=== PATIENT | male | born 1975 | race Caucasian/White ===

== ENCOUNTER 2022-03-17 02:44 | Inpatient (IN) ==
[2022-03-17] MEDS ORDERED: SODIUM CHLORIDE 0.9% 500 ML IV STA (02:56)
[2022-03-17] MEDS ORDERED: ONDANSETRON 4 MG/2 ML VIAL IV STA (02:56)
[2022-03-17 03:10] LABS: Basophils % 0.4 % (0.0-0.8); Eosinophils # 0.3 10*3/uL (0.0-0.87); Eosinophils % 3.9 % (0.00-10.9); Hematocrit 47.4 VOL% (42.0-52.0); Hemoglobin 15.7 GM/DL (14.0-18.0); Immature Granulocytes % 1.5 %; Immature Granulocytes Absolute 0.12 #; Lymphocytes # 2.1 10*3/uL (1.4-4.0); Lymphocytes % 26.1 % (21.2-54.2); Mean Corpuscular HGB Conc 33.1 GM/DL (32-36); Mean Corpuscular Volume 90.1 FL (87-102); Mean Platelet Volume 11.5 FL (9.6-12.0); Monocytes % 12.5 % (1.7-12.7); Neutrophils % 55.6 % (38.7-73.9); Platelet Count 186 T/CUMM (130-400); Red Blood Count 5.26 MC/CUMM (3.8-5.5)
[2022-03-17 03:27] LABS: Lactic Acid 0.9 MMOL/L (0.4-2.0)
[2022-03-17 03:36] LABS: Alanine Aminotransferase 1976 U/L (16-61); Albumin 3.1 G/DL (3.4-5.0); Alkaline Phosphatase 203 U/L (45-117); Amylase 40 U/L (25-115); Aspartate Amino Transferase 1079 U/L (0-37); Blood Urea Nitrogen 14 MG/DL (7-18); Carbon Dioxide 23 MMOL/L (21-32); Chloride 106 MMOL/L (98-107); Glucose 124 MG/DL (74-106); Osmolality,Calculated 280.4 MOS/KG (273-304); Potassium 4.2 MMOL/L (3.5-5.1); Sodium 140 MMOL/L (136-145); Total Protein 6.9 G/DL (6.4-8.2)
[2022-03-17 03:37] LABS: Ammonia < 10 UMOL/L (11-32)
[2022-03-17 04:17] LABS: Mucus,Urine Occasional /LPF (Occasional); RBC,Urine <1 /HPF (0-4)
[2022-03-17 04:18] LABS: Urine Appearance Clear (Clear); Urine Color Yellow (Yellow); Urine pH 5.5 (4.5-8.0)
[2022-03-17 04:19] LABS: Bilirubin,Urine Moderate mg/dL (Negative); Blood, Urine Negative (Negative); Glucose,Urine (UA) Negative (Negative); Ketones,Urine Negative (Negative); Nitrite,Urine Negative (Negative); Protein,Urine Negative (Negative); Urine Urobilinogen 0.2 eU/dL (<2.0)
[2022-03-17 04:28] LABS: Hepatitis B Core IgM Quant < 0.05 Index; Hepatitis B Surface Ag Quant < 0.10 Index; Hepatitis B Surface Ag Result Non-Reactive (NonReactive); Hepatitis C Virus Ab Quant 5.79 Index
[2022-03-17 04:34] LABS: Barbiturates Screen,Urine Negative (Negative); Benzodiazepines Screen,Urine Negative (Negative); Cannabinoid Screen,Urine Negative (Negative); Opiate Screen,Urine Negative (Negative); Phencyclidine Screen,Urine Negative (Negative)
[2022-03-17] MEDS ORDERED: MAGNESIUM SULF RIDER 2 GM/50 ML PREMIX IV ONE (05:15)
[2022-03-17] MEDS ORDERED: GLUCAGON 1 MG VIAL IM PRN (05:15)
[2022-03-17] MEDS ORDERED: NICOTINE 21 MG/24 HR PATCH TRANSDERM PRN (05:15)
[2022-03-17] MEDS ORDERED: ONDANSETRON 4 MG/2 ML VIAL IV PRN (05:15)
[2022-03-17] MEDS ORDERED: DEXTROSE 10% 250 ML BAG IV PRN (05:25)
[2022-03-17] MEDS: SODIUM CHLORIDE 0.9% 1,000 ML IV SCH ×2 (05:53→16:32)
[2022-03-17] MEDS: diphenhydrAMINE 50 MG/1 ML VIAL IV PRN ×3 (05:56→22:57)
[2022-03-17] MEDS: PANTOPRAZOLE 40 MG VIAL IV SCH (09:03)
[2022-03-17 10:02] LABS: PT Patient Result 11.3 SECS (10.5-12.0)
[2022-03-18] MEDS ORDERED: SIMETHICONE CHEW 125 MG TABLET PO PRN (00:25)
[2022-03-18] MEDS: SODIUM CHLORIDE 0.9% 1,000 ML IV SCH ×3 (01:08→19:55)
[2022-03-18] MEDS: hydrOXYzine HCL 25 MG TABLET PO PRN ×2 (05:00→10:46)
[2022-03-18 05:31] LABS: Basophils % 0.3 % (0.0-0.8); Eosinophils # 0.4 10*3/uL (0.0-0.87); Eosinophils % 6.4 % (0.00-10.9); Hematocrit 45.3 VOL% (42.0-52.0); Immature Granulocytes % 1.6 %; Lymphocytes # 1.5 10*3/uL (1.4-4.0); Lymphocytes % 24.6 % (21.2-54.2); Mean Corpuscular HGB Conc 33.1 GM/DL (32-36); Mean Corpuscular Volume 91.1 FL (87-102); Mean Platelet Volume 12.4 FL (9.6-12.0); Monocytes # 0.7 10*3/uL (0.11-0.8); Monocytes % 11.7 % (1.7-12.7); Neutrophils % 55.4 % (38.7-73.9); Platelet Count 163 T/CUMM (130-400); Red Blood Count 4.97 MC/CUMM (3.8-5.5); Red Cell Distribution Width 15.5 % (9.3-17.3); White Blood Count 6.2 T/CUMM (4-12)
[2022-03-18 05:40] LABS: INR 1.1
[2022-03-18 06:00] LABS: Albumin 2.8 G/DL (3.4-5.0); Bilirubin,Total 7.2 MG/DL (0.20-1.00); Calcium 8.4 MG/DL (8.5-10.1); Osmolality,Calculated 276.5 MOS/KG (273-304); Potassium 3.9 MMOL/L (3.5-5.1)
[2022-03-18] MEDS: diphenhydrAMINE 50 MG/1 ML VIAL IV PRN ×2 (07:53→20:44)
[2022-03-18] MEDS: PANTOPRAZOLE 40 MG VIAL IV SCH (08:00)
[2022-03-19] MEDS: SODIUM CHLORIDE 0.9% 1,000 ML IV SCH (05:38)
[2022-03-19] MEDS: diphenhydrAMINE 50 MG/1 ML VIAL IV PRN ×2 (05:39→11:40)
[2022-03-19 08:46] LABS: Albumin 2.9 G/DL (3.4-5.0); Bilirubin,Total 7.5 MG/DL (0.20-1.00); Calcium 8.6 MG/DL (8.5-10.1); Osmolality,Calculated 273.8 MOS/KG (273-304); Potassium 4.1 MMOL/L (3.5-5.1); Total Protein 6.4 G/DL (6.4-8.2)
[2022-03-19] MEDS ORDERED: PANTOPRAZOLE 40 MG TABLET PO SCH (09:00)
[2022-03-19 12:10] VITALS: BP 115/73
== END 2022-03-19 15:23 | disposition left against medical advice (07) | DRG 443 ==
LOC: N.ED 02:44 → N.EDINP 05:15 → SUATTDRO 05:15 → N.5E 14:00
PROVIDERS: ADMIT Internal Medicine; ATTEND Family Medicine